=== PATIENT | male | born 1975 | race Caucasian/White ===

== ENCOUNTER 2020-01-15 17:56 | Inpatient (IN) | payer OTHER ==
[~2020-01-15] VITALS: Ht 170.2 cm; Wt 54.9 kg
[~2020-01-15 17:56] MED LIST: DILTIAZEM HCL 125 MG in DEXTROSE 5%-WATER 100 ML IV SCH
[2020-01-15] MEDS ORDERED: DILTIAZEM HCL 5 MG/ML 5 ML VIAL IVP ONE (18:15)
[2020-01-15] MEDS ORDERED: SODIUM CHLORIDE 0.9% 1,000 ML IV ONE (18:15)
[2020-01-15] MEDS ORDERED: SODIUM CHLORIDE 0.9% 1,700 ML IV ONE (18:30)
[2020-01-15] MEDS ORDERED: DILTIAZEM HCL 125 MG in DEXTROSE 5%-WATER 100 ML IV PRN (19:15)
[2020-01-15 19:22] LABS: BASOPHILS % (AUTO) 0.9 % (0.0-2.0); EOSINOPHILS % (AUTO) 0.8 % (1.0-6.0); HEMATOCRIT 35.3 % (41-53); HEMOGLOBIN 11.5 g/dL (13.5-17.5); LYMPHOCYTES # (AUTO) 1.1 K/uL (1.0-4.8); LYMPHOCYTES % (AUTO) 17.5 % (22.0-44.0); MEAN CORPUSCULAR HEMOGLOBIN 27.8 pg (26.0-34.0); MEAN CORPUSCULAR HGB CONC 32.4 G/dL (31.0-37.0); MEAN CORPUSCULAR VOLUME 86 fL (80-100); MONOCYTES # (AUTO) 0.9 K/uL (0.1-1.0); MONOCYTES % (AUTO) 14.1 % (2.0-9.0); NEUTROPHILS # (AUTO) 4.2 K/uL (1.8-7.7); NEUTROPHILS % (AUTO) 66.7 % (40.0-70.0); PLATELET COUNT (AUTO) 134 K/uL (150-450); RED BLOOD CELL COUNT(AUTO) 4.12 MIL/uL (4.50-5.90); RED CELL DISTRIBUTION WIDTH 16.7 % (11.5-14.5)
[2020-01-15 19:34] LABS: D-DIMER 1.97 mg/L FEU (0.00-0.50); INR 1.6 (0.9-1.1); PROTHROMBIN TIME 16.8 SEC (9.4-11.6)
[2020-01-15 19:42] LABS: B-TYPE NATRIURETIC PEPTIDE 1190 pg/mL (0-100)
[2020-01-15 19:43] LABS: CARBON DIOXIDE 23 mmol/L (22-29); CHLORIDE 107 mmol/L (98-107); GLOMERULAR FILTR. RATE CALC > 60 mL/min (>60); GLUCOSE,RANDOM 155 mg/dL (70-110); POTASSIUM 4.8 mmol/L (3.5-5.1); UREA NITROGEN, BLOOD 17 mg/dL (7-18)
[2020-01-15] MEDS ORDERED: AZITHROMYCIN 500 MG/NS 250 ML IV ONE (19:45)
[2020-01-15] MEDS ORDERED: CefTRIAXone 1 GM/DEXTROSE 50 ML IV ONE (19:45)
[2020-01-15 19:47] LABS: ANION GAP 8 mmol/L (8-16); SODIUM SERUM 138 mmol/L (136-145)
[2020-01-15] MEDS ORDERED: IOVERSOL 350 MG/ML 100 ML VIAL ONE (19:52)
[2020-01-15] MEDS ORDERED: SODIUM CHLORIDE 0.9% 100 ML ONE (19:52)
[2020-01-15 19:55] LABS: INFLUENZA TYPE A NEGATIVE FOR TYPE A (NEGATIVE); INFLUENZA TYPE B NEGATIVE FOR TYPE B (NEGATIVE)
[2020-01-15 19:56] LABS: LACTIC ACID 2.1 mmol/L (0.4-2.0)
[2020-01-15 20:09] LABS: ALANINE AMINOTRANSFERASE 28 U/L (12-78); ALKALINE PHOSPHATASE 175 U/L (46-116); ASPARTATE AMINOTRANSFERASE 8 U/L (15-37); BILIRUBIN,TOTAL 1.7 mg/dL (0.1-1.0); FERRITIN 63 ng/mL (26-388)
[2020-01-15 20:10] LABS: ALBUMIN 2.5 g/dL (3.4-5.0); CREATINE KINASE, TOTAL ONLY 120 U/L (39-308); LACTATE DEHYDROGENASE 215 U/L (85-227); TOTAL PROTEIN, SERUM 5.6 g/dL (6.4-8.2)
[2020-01-15] MEDS ORDERED: 0.9% SODIUM CHLORIDE 10 ML SYRINGE IVP PRN (20:15)
[2020-01-15] MEDS ORDERED: ACETAMINOPHEN 325 MG TABLET PO PRN (20:15)
[2020-01-15] MEDS ORDERED: ASPIRIN 81 MG CHEWABLE TABLET PO ONE (20:15)
[2020-01-15 20:30] LABS: C-REACTIVE PROTEIN QUANT 1.42 mg/dL (0.00-0.30)
[2020-01-15] MEDS ORDERED: LORazepam 2 MG/ML VIAL IVP ONE (21:00)
[2020-01-15] MEDS ORDERED: NOREPINEPHRINE 4 MG/D5%-WATER 250 ML IV ONE (22:37)
[2020-01-15] MEDS ORDERED: PHENYLEPHRINE HCL IN 0.9% NACL 400 MCG/10 ML SYRINGE IVP ONE (22:40)
[2020-01-15 23:03] LABS: ABG A-A DIFF O2 576.5 mmHg (10-20.0); ABG BASE EXCESS -26.7 mmol/L (-2.0-3.0); ABG CARBOXYHEMOGLOBIN 0.4 % (0.0-1.5); ABG METHEMOGLOBIN 0.4 % (0.0-1.5); ABG OXYGEN CONTENT 14.4 mL/dL (15.0-23.0); ABG PCO2 54 mmHg (35-45); ABG TOTAL HEMOGLOBIN 12.4 G/dL (12.0-18.0); PO2, ARTERIAL BG 82.8 mmHg (88.0-96.0); SOURCE, BLOOD GAS ARTERIAL; TEMPERATURE, FAHRENHEIT, BG 98.4 FAHREN (96.0-98.6)
[2020-01-15 23:09] LABS: ABG HCO3 5.9 mmol/L (22.0-26.0); ABG PH 6.789 (7.35-7.450)
[2020-01-15 23:10] LABS: ABG OXYGEN SATURATION 82.7 % (95.0-98.0); O2 DEVICE,BLOOD GAS VENTILATOR (ROOM AIR); PEEP,BG 5 cm H2O; SITE, BLOOD GAS LFT RADIAL; SPONTANEOUS VT, BG 445 ml; VT, ABG 450 ml
[2020-01-15] MEDS ORDERED: SODIUM BICARBONATE [ADULT] 8.4% 50 MEQ/50 ML SYRINGE IVP ONE (23:15)
[2020-01-15] MEDS ORDERED: SODIUM BICARBONATE 150 MEQ in DEXTROSE 5%-WATER 1,000 ML IV ONE (23:15)
[2020-01-15] MEDS ORDERED: HYDROCORTISONE SOD SUCC 100 MG/2 ML VIAL IVP ONE (23:30)
[2020-01-15] MEDS ORDERED: FentaNYL CITRATE-PF 100 MCG/2 ML VIAL ONE (23:46)
[2020-01-15] MEDS ORDERED: LIDOCAINE 1% 10 ML VIAL ONE (23:46)
[2020-01-15] MEDS ORDERED: MIDAZOLAM HCL 2 MG/2 ML VIAL ONE (23:46)
[2020-01-16] VITALS (18 sets, daily range): BP systolic 92–144; BP diastolic 46–73
[2020-01-16 00:01] LABS: HEMATOCRIT 35.5 % (41-53); MEAN CORPUSCULAR VOLUME 90 fL (80-100); PLATELET COUNT (AUTO) 113 K/uL (150-450); RED BLOOD CELL COUNT(AUTO) 3.94 MIL/uL (4.50-5.90); RED CELL DISTRIBUTION WIDTH 17.4 % (11.5-14.5)
[2020-01-16 00:26] LABS: ANION GAP 17 mmol/L (8-16); CALCIUM, TOTAL 6.6 mg/dL (8.8-10.5); CARBON DIOXIDE 16 mmol/L (22-29); CHLORIDE 109 mmol/L (98-107); CREATININE 1.21 mg/dL (0.60-1.30); GLOMERULAR FILTR. RATE CALC > 60 mL/min (>60); GLUCOSE,RANDOM 133 mg/dL (70-110); POTASSIUM 4.8 mmol/L (3.5-5.1); SODIUM SERUM 142 mmol/L (136-145); UREA NITROGEN, BLOOD 16 mg/dL (7-18)
[2020-01-16] MEDS ORDERED: MIDAZOLAM HCL 2 MG/2 ML VIAL IVP ONE ×2 (00:30→01:15)
[2020-01-16] MEDS ORDERED: FentaNYL CITRATE-PF 100 MCG/2 ML VIAL IVP ONE ×2 (00:30→01:15)
[2020-01-16 00:31] LABS: ALANINE AMINOTRANSFERASE 29 U/L (12-78); ALBUMIN 2.2 g/dL (3.4-5.0); ALKALINE PHOSPHATASE 202 U/L (46-116); ASPARTATE AMINOTRANSFERASE 37 U/L (15-37); BILIRUBIN,TOTAL 1.4 mg/dL (0.1-1.0); TOTAL PROTEIN, SERUM 5.2 g/dL (6.4-8.2)
[2020-01-16 00:35] LABS: LACTIC ACID 11.7 mmol/L (0.4-2.0)
[2020-01-16 00:36] LABS: B-TYPE NATRIURETIC PEPTIDE 2010 pg/mL (0-100)
[2020-01-16 00:45] LABS: BAND NEUTROPHILS % (MANUAL) 9 % (0-5); LYMPHOCYTES % (MANUAL) 21 % (22-44); MONOCYTES % (MANUAL) 6 % (2-9); SEGMENTED NEUTROPHILS % 64 % (40-70)
[2020-01-16] MEDS ORDERED: SODIUM CHLORIDE 0.9% 1,000 ML IV ONE ×2 (00:45)
[2020-01-16 01:16] LABS: SOURCE, BLOOD GAS ARTERIAL
[2020-01-16] MEDS: PROPOFOL 1000 MG/ISO-OSM 100 ML IV PRN ×3 (01:32→19:52)
[2020-01-16] MEDS: VASOPRESSIN 40 UNITS in DEXTROSE 5%-WATER 98 ML IV PRN (01:34)
[2020-01-16 01:39] LABS: ABG A-A DIFF O2 640.3 mmHg (10-20.0); ABG BASE EXCESS -17.9 mmol/L (-2.0-3.0); ABG CARBOXYHEMOGLOBIN 0.5 % (0.0-1.5); ABG METHEMOGLOBIN 0.2 % (0.0-1.5); ABG OXYGEN CONTENT 11.6 mL/dL (15.0-23.0); ABG OXYHEMOGLOBIN 70.1 % (94.0-100.0); ABG PCO2 39 mmHg (35-45); ABG TOTAL HEMOGLOBIN 11.7 G/dL (12.0-18.0); TEMPERATURE, FAHRENHEIT, BG 92.7 FAHREN (96.0-98.6)
[2020-01-16] MEDS ORDERED: CALCIUM GLUCONATE 2,000 MG in DEXTROSE 5%-WATER 50 ML IV ONE (02:30)
[2020-01-16] MEDS ORDERED: HEPARIN SODIUM,PORCINE 5,000 UNITS/ML VIAL IVP PRN ×4 (03:00)
[2020-01-16] MEDS ORDERED: HEPARIN SODIUM 25000 UNITS/D5W 250 ML IV PRN ×2 (03:00)
[2020-01-16] MEDS ORDERED: HEPARIN SODIUM,PORCINE 5,000 UNITS/ML VIAL IVP ONE ×3 (03:00)
[2020-01-16] MEDS ORDERED: DILTIAZEM HCL 125 MG in DEXTROSE 5%-WATER 100 ML IV SCH (03:00)
[2020-01-16 03:16] LABS: ABG PH 7.099 (7.35-7.450)
[2020-01-16 03:17] LABS: ABG OXYGEN SATURATION 70.6 % (95.0-98.0); O2 DEVICE,BLOOD GAS VENTILATOR (ROOM AIR); PO2, ARTERIAL BG 41.6 mmHg (88.0-96.0); SITE, BLOOD GAS LFT RADIAL; VT, ABG 450 ml
[2020-01-16 03:18] LABS: PEEP,BG 10 cm H2O; SPONTANEOUS VT, BG 445 ml
[2020-01-16 03:28] LABS: BASOPHILS % (AUTO) 0.1 % (0.0-2.0); EOSINOPHILS % (AUTO) 0.1 % (1.0-6.0); HEMOGLOBIN 10.2 g/dL (13.5-17.5); LYMPHOCYTES # (AUTO) 0.6 K/uL (1.0-4.8); LYMPHOCYTES % (AUTO) 3.3 % (22.0-44.0); MEAN CORPUSCULAR HEMOGLOBIN 27.3 pg (26.0-34.0); MEAN CORPUSCULAR VOLUME 88 fL (80-100); MONOCYTES # (AUTO) 1.6 K/uL (0.1-1.0); MONOCYTES % (AUTO) 9.3 % (2.0-9.0); NEUTROPHILS # (AUTO) 15.4 K/uL (1.8-7.7); PLATELET COUNT (AUTO) 108 K/uL (150-450); RED BLOOD CELL COUNT(AUTO) 3.74 MIL/uL (4.50-5.90); RED CELL DISTRIBUTION WIDTH 17.3 % (11.5-14.5)
[2020-01-16 03:32] LABS: NEUTROPHILS % (AUTO) 87.2 % (40.0-70.0)
[2020-01-16 03:40] LABS: INR 2.3 (0.9-1.1); PROTHROMBIN TIME 23.4 SEC (9.4-11.6)
[2020-01-16 04:43] LABS: ABG A-A DIFF O2 639.1 mmHg (10-20.0); ABG BASE EXCESS -14.6 mmol/L (-2.0-3.0); ABG CARBOXYHEMOGLOBIN 0.2 % (0.0-1.5); ABG HCO3 13.4 mmol/L (22.0-26.0); ABG METHEMOGLOBIN 0.3 % (0.0-1.5); ABG OXYGEN CONTENT 12.9 mL/dL (15.0-23.0); ABG OXYHEMOGLOBIN 79.5 % (94.0-100.0); ABG PCO2 37 mmHg (35-45); ABG TOTAL HEMOGLOBIN 11.5 G/dL (12.0-18.0); PO2, ARTERIAL BG 45.1 mmHg (88.0-96.0); SOURCE, BLOOD GAS ARTERIAL; TEMPERATURE, FAHRENHEIT, BG 92.7 FAHREN (96.0-98.6)
[2020-01-16 04:44] LABS: ABG OXYGEN SATURATION 79.9 % (95.0-98.0); O2 DEVICE,BLOOD GAS VENTILATOR (ROOM AIR); PEEP,BG 8 cm H2O; SITE, BLOOD GAS LFT RADIAL; VT, ABG 450 ml
[2020-01-16 04:45] LABS: SPONTANEOUS VT, BG 504 ml
[2020-01-16] MEDS: NOREPINEPHRINE 4 MG/D5%-WATER 250 ML IV PRN ×3 (04:45→19:53)
[2020-01-16] MEDS: PHENYLEPHRINE 200 MG/D5%-WATER 250 ML IV PRN (04:46)
[2020-01-16 05:26] LABS: EOSINOPHILS % (AUTO) 0 % (1.0-6.0); HEMATOCRIT 32.5 % (41-53); HEMOGLOBIN 10.2 g/dL (13.5-17.5); LYMPHOCYTES # (AUTO) 0.3 K/uL (1.0-4.8); LYMPHOCYTES % (AUTO) 1.5 % (22.0-44.0); MEAN CORPUSCULAR HEMOGLOBIN 27.8 pg (26.0-34.0); MEAN CORPUSCULAR HGB CONC 31.5 G/dL (31.0-37.0); MEAN CORPUSCULAR VOLUME 88 fL (80-100); MONOCYTES # (AUTO) 2.4 K/uL (0.1-1.0); MONOCYTES % (AUTO) 10.8 % (2.0-9.0); NEUTROPHILS # (AUTO) 19.3 K/uL (1.8-7.7); PLATELET COUNT (AUTO) 105 K/uL (150-450); RED BLOOD CELL COUNT(AUTO) 3.67 MIL/uL (4.50-5.90); RED CELL DISTRIBUTION WIDTH 17.2 % (11.5-14.5)
[2020-01-16 05:27] LABS: NEUTROPHILS % (AUTO) 86.7 % (40.0-70.0)
[2020-01-16 05:29] LABS: CALCIUM, TOTAL 6.7 mg/dL (8.8-10.5); CREATININE 1.4 mg/dL (0.60-1.30); POTASSIUM 4.3 mmol/L (3.5-5.1)
[2020-01-16 05:34] LABS: BILIRUBIN,TOTAL 1.9 mg/dL (0.1-1.0); TOTAL PROTEIN, SERUM 4.6 g/dL (6.4-8.2)
[2020-01-16] MEDS: DILTIAZEM HCL 125 MG in DEXTROSE 5%-WATER 100 ML IV PRN (05:45)
[2020-01-16 08:43] LABS: GLUCOSE,POINT OF CARE 180 MG/DL (70-110)
[2020-01-16] MEDS ORDERED: SODIUM BICARBONATE 150 MEQ in DEXTROSE 5%-WATER 1,000 ML IV SCH (09:00)
[2020-01-16 10:48] LABS: ABG A-A DIFF O2 525.5 mmHg (10-20.0); ABG BASE EXCESS -3.2 mmol/L (-2.0-3.0); ABG CARBOXYHEMOGLOBIN 0.3 % (0.0-1.5); ABG METHEMOGLOBIN 0.2 % (0.0-1.5); ABG OXYGEN CONTENT 16.1 mL/dL (15.0-23.0); ABG OXYGEN SATURATION 99.2 % (95.0-98.0); ABG OXYHEMOGLOBIN 98.7 % (94.0-100.0); ABG PCO2 33 mmHg (35-45); ABG PH 7.421 (7.35-7.450); ABG TOTAL HEMOGLOBIN 11.3 G/dL (12.0-18.0); PO2, ARTERIAL BG 163.7 mmHg (88.0-96.0); SOURCE, BLOOD GAS ARTERIAL; TEMPERATURE, FAHRENHEIT, BG 91.2 FAHREN (96.0-98.6)
[2020-01-16 10:49] LABS: SITE, BLOOD GAS ARTERIAL LINE
[2020-01-16 10:50] LABS: O2 DEVICE,BLOOD GAS VENTILATOR (ROOM AIR); PEEP,BG 8 cm H2O; VT, ABG 450 ml
[2020-01-16 13:21] LABS: CALCIUM, TOTAL 6.1 mg/dL (8.8-10.5); CREATININE 1.42 mg/dL (0.60-1.30); MAGNESIUM 1.4 mg/dL (1.80-2.40); PHOSPHORUS 3.8 mg/dL (2.5-4.9); POTASSIUM 3.5 mmol/L (3.5-5.1)
[2020-01-16] MEDS ORDERED: MAGNESIUM SULFATE 3 GM in DEXTROSE 5%-WATER 100 ML IV ONE (14:00)
[2020-01-16 15:15] LABS: APPEARANCE,URINE CLOUDY (CLEAR); BILIRUBIN,URINE NEGATIVE (NEGATIVE); GLUCOSE, URINE (UA) 100 mg/dL (NEGATIVE); KETONES,URINE NEGATIVE (NEGATIVE); LEUKOCYTE ESTERASE ,URINE TRACE (NEGATIVE); NITRATE,URINE NEGATIVE (NEGATIVE); OCCULT BLOOD,URINE LARGE (NEGATIVE); PROTEIN,URINE SEE CONFIRM (NEGATIVE)
[2020-01-16 15:21] LABS: CREATININE,URINE RANDOM 14.3 mg/dL (30.0-125.0); PROTEIN,URINE RANDOM 193 mg/dL (0-11.9); SODIUM,URINE RANDOM 93 mmol/l (20-110); UREA NITROGEN,URINE RANDOM 115 mg/dL (350-1000)
[2020-01-16 15:46] LABS: SULFOSALICYLIC ACID,URINE 4+ (Negative)
[2020-01-16 15:47] LABS: RBC,URINE >100 /HPF (0-2)
[2020-01-16 15:48] LABS: BACTERIA,URINE Moderate /HPF (None Seen)
[2020-01-16 15:49] LABS: SQUAMOUS EPITHELIAL CELL,UR Few /LPF (None Seen)
[2020-01-16 19:00] LABS: CALCIUM, TOTAL 6.2 mg/dL (8.8-10.5); CREATININE 1.61 mg/dL (0.60-1.30); POTASSIUM 3.2 mmol/L (3.5-5.1)
[2020-01-16 19:03] LABS: MAGNESIUM 2.5 mg/dL (1.80-2.40); PHOSPHORUS 3.8 mg/dL (2.5-4.9)
[2020-01-16] MEDS ORDERED: *CLINICAL-CEFEPIME DOSING CLINICAL ONE (20:15)
[2020-01-16] MEDS: SODIUM CHLORIDE 0.9% 1,000 ML IV SCH (21:14)
[2020-01-16] MEDS: CEFEPIME HCL 2 GM in DEXTROSE 5%-WATER 50 ML IV SCH (21:14)
[2020-01-16] MEDS: POTASSIUM CHL 10 MEQ/WATER 50 ML IV SCH ×2 (21:15→22:30)
[2020-01-16] MEDS: MetroNIDAZOLE 500 MG/NACL 100 ML IV SCH (21:54)
[2020-01-16 22:41] LABS: AMPHET/METH SCREEN,URINE NEGATIVE (NEGATIVE); BARBITURATE SCREEN, URINE NEGATIVE (NEGATIVE); BENZODIAZEPINES SCREEN,URINE POSITIVE (NEGATIVE); CANNABINOID SCREEN,URINE NEGATIVE (NEGATIVE); COCAINE SCREEN,URINE NEGATIVE (NEGATIVE); METHADONE SCREEN, URINE NEGATIVE (NEGATIVE); OPIATE SCREEN,URINE NEGATIVE (NEGATIVE)
[2020-01-16 22:46] LABS: PHENCYCLIDINE SCREEN,URINE NEGATIVE (NEGATIVE)
[2020-01-17] VITALS (24 sets, daily range): BP systolic 99–139; BP diastolic 25–65
[2020-01-17] MEDS: DILTIAZEM HCL 125 MG in DEXTROSE 5%-WATER 100 ML IV PRN (03:24)
[2020-01-17] MEDS: MetroNIDAZOLE 500 MG/NACL 100 ML IV SCH ×3 (05:52→23:14)
[2020-01-17] MEDS: NOREPINEPHRINE 4 MG/D5%-WATER 250 ML IV PRN ×2 (05:52→21:23)
[2020-01-17] MEDS: PROPOFOL 1000 MG/ISO-OSM 100 ML IV PRN ×3 (06:59→22:53)
[2020-01-17 08:07] LABS: BASOPHILS % (AUTO) 0.2 % (0.0-2.0); EOSINOPHILS % (AUTO) 0.9 % (1.0-6.0); HEMATOCRIT 30.6 % (41-53); HEMOGLOBIN 10.2 g/dL (13.5-17.5); LYMPHOCYTES # (AUTO) 1.5 K/uL (1.0-4.8); LYMPHOCYTES % (AUTO) 12.6 % (22.0-44.0); MEAN CORPUSCULAR HEMOGLOBIN 27.9 pg (26.0-34.0); MEAN CORPUSCULAR HGB CONC 33.4 G/dL (31.0-37.0); MEAN CORPUSCULAR VOLUME 84 fL (80-100); MONOCYTES # (AUTO) 0.6 K/uL (0.1-1.0); MONOCYTES % (AUTO) 4.7 % (2.0-9.0); NEUTROPHILS # (AUTO) 9.9 K/uL (1.8-7.7); NEUTROPHILS % (AUTO) 81.6 % (40.0-70.0); PLATELET COUNT (AUTO) 42 K/uL (150-450); RED BLOOD CELL COUNT(AUTO) 3.66 MIL/uL (4.50-5.90); RED CELL DISTRIBUTION WIDTH 16.8 % (11.5-14.5)
[2020-01-17 09:02] LABS: ABG A-A DIFF O2 270.3 mmHg (10-20.0); ABG BASE EXCESS -0.3 mmol/L (-2.0-3.0); ABG CARBOXYHEMOGLOBIN 0.2 % (0.0-1.5); ABG HCO3 24.2 mmol/L (22.0-26.0); ABG METHEMOGLOBIN 0.2 % (0.0-1.5); ABG OXYGEN CONTENT 14.2 mL/dL (15.0-23.0); ABG OXYHEMOGLOBIN 91.6 % (94.0-100.0); ABG PCO2 34 mmHg (35-45); ABG PH 7.462 (7.35-7.450); PO2, ARTERIAL BG 52.5 mmHg (88.0-96.0); SOURCE, BLOOD GAS ARTERIAL; TEMPERATURE, FAHRENHEIT, BG 92.4 FAHREN (96.0-98.6)
[2020-01-17 09:04] LABS: O2 DEVICE,BLOOD GAS VENTILATOR (ROOM AIR); PEEP,BG 5 cm H2O; SITE, BLOOD GAS ARTERIAL LINE; VT, ABG 450 ml
[2020-01-17] MEDS ORDERED: ARGATROBAN 250 MG in DEXTROSE 5%-WATER 247.5 ML IV PRN (10:00)
[2020-01-17] MEDS ORDERED: BUMETANIDE 0.25 MG/ML 4 ML VIAL IVP ONE (10:15)
[2020-01-17] MEDS: SODIUM CHLORIDE 0.9% 1,000 ML IV SCH (11:03)
[2020-01-17 11:10] LABS: BASOPHILS % (AUTO) 0.3 % (0.0-2.0); EOSINOPHILS % (AUTO) 0.5 % (1.0-6.0); HEMOGLOBIN 9.8 g/dL (13.5-17.5); LYMPHOCYTES # (AUTO) 1.4 K/uL (1.0-4.8); LYMPHOCYTES % (AUTO) 12.2 % (22.0-44.0); MEAN CORPUSCULAR HEMOGLOBIN 27.5 pg (26.0-34.0); MEAN CORPUSCULAR HGB CONC 32.7 G/dL (31.0-37.0); MEAN CORPUSCULAR VOLUME 84 fL (80-100); MONOCYTES # (AUTO) 0.7 K/uL (0.1-1.0); MONOCYTES % (AUTO) 6.2 % (2.0-9.0); NEUTROPHILS # (AUTO) 8.9 K/uL (1.8-7.7); NEUTROPHILS % (AUTO) 80.8 % (40.0-70.0); PLATELET COUNT (AUTO) 38 K/uL (150-450); RED BLOOD CELL COUNT(AUTO) 3.57 MIL/uL (4.50-5.90); RED CELL DISTRIBUTION WIDTH 16.7 % (11.5-14.5)
[2020-01-17 11:48] LABS: CALCIUM, TOTAL 6.4 mg/dL (8.8-10.5); CREATININE 1.96 mg/dL (0.60-1.30); POTASSIUM 3.5 mmol/L (3.5-5.1)
[2020-01-17 11:50] LABS: MAGNESIUM 2.1 mg/dL (1.80-2.40); PHOSPHORUS 3.7 mg/dL (2.5-4.9)
[2020-01-17 14:10] LABS: C-REACTIVE PROTEIN QUANT 6.2 mg/dL (0.00-0.30)
[2020-01-17 14:11] LABS: D-DIMER 6.08 mg/L FEU (0.00-0.50); INR 2.5 (0.9-1.1); PROTHROMBIN TIME 25.5 SEC (9.4-11.6)
[2020-01-17] MEDS ORDERED: AMIODARONE HCL 150 MG in DEXTROSE 5%-WATER 97 ML IV ONE (15:15)
[2020-01-17] MEDS ORDERED: AMIODARONE HCL 360 MG in DEXTROSE 5%-WATER 242.8 ML IV ONE (15:30)
[2020-01-17] MEDS: DOXYCYCLINE HYCLATE 100 MG in DEXTROSE 5%-WATER 100 ML IV SCH (16:20)
[2020-01-17] MEDS: CEFEPIME HCL 2 GM in DEXTROSE 5%-WATER 50 ML IV SCH (21:14)
[2020-01-17] MEDS ORDERED: AMIODARONE HCL 540 MG in DEXTROSE 5%-WATER 239.2 ML IV ONE (21:30)
[2020-01-18] VITALS (23 sets, daily range): BP systolic 110–137; BP diastolic 25–40
[2020-01-18] MEDS: SODIUM CHLORIDE 0.9% 1,000 ML IV SCH (01:21)
[2020-01-18] MEDS: NOREPINEPHRINE 4 MG/D5%-WATER 250 ML IV PRN ×5 (02:11→22:55)
[2020-01-18 02:51] LABS: HEMATOCRIT 31.1 % (41-53); HEMOGLOBIN 10.3 g/dL (13.5-17.5)
[2020-01-18] MEDS ORDERED: ZOLPIDEM TARTRATE 5 MG TABLET PO PRN (03:15)
[2020-01-18] MEDS ORDERED: ONDANSETRON HCL 4 MG/2 ML VIAL IVP PRN (03:15)
[2020-01-18] MEDS ORDERED: ACETAMINOPHEN 325 MG TABLET PO PRN (03:15)
[2020-01-18] MEDS: DOXYCYCLINE HYCLATE 100 MG in DEXTROSE 5%-WATER 100 ML IV SCH ×2 (05:00→17:11)
[2020-01-18 05:34] LABS: BASOPHILS % (AUTO) 0.3 % (0.0-2.0); EOSINOPHILS % (AUTO) 1.4 % (1.0-6.0); HEMATOCRIT 31.4 % (41-53); HEMOGLOBIN 10.8 g/dL (13.5-17.5); LYMPHOCYTES # (AUTO) 2.1 K/uL (1.0-4.8); LYMPHOCYTES % (AUTO) 15.5 % (22.0-44.0); MEAN CORPUSCULAR HEMOGLOBIN 28.8 pg (26.0-34.0); MEAN CORPUSCULAR HGB CONC 34.3 G/dL (31.0-37.0); MEAN CORPUSCULAR VOLUME 84 fL (80-100); MONOCYTES # (AUTO) 1.6 K/uL (0.1-1.0); NEUTROPHILS # (AUTO) 9.5 K/uL (1.8-7.7); NEUTROPHILS % (AUTO) 70.8 % (40.0-70.0); PLATELET COUNT (AUTO) 49 K/uL (150-450); RED BLOOD CELL COUNT(AUTO) 3.74 MIL/uL (4.50-5.90); RED CELL DISTRIBUTION WIDTH 16.5 % (11.5-14.5)
[2020-01-18 05:39] LABS: ACETAMINOPHEN 4 mcg/mL (10-30); CALCIUM, TOTAL 6.6 mg/dL (8.8-10.5); CREATININE 2.87 mg/dL (0.60-1.30); MAGNESIUM 2.1 mg/dL (1.80-2.40); PHOSPHORUS 5.9 mg/dL (2.5-4.9)
[2020-01-18] MEDS: PROPOFOL 1000 MG/ISO-OSM 100 ML IV PRN ×3 (05:41→18:13)
[2020-01-18 05:50] LABS: SALICYLATE < 2.8 mg/dL (2.8-20.0)
[2020-01-18] MEDS: MetroNIDAZOLE 500 MG/NACL 100 ML IV SCH ×3 (06:22→21:20)
[2020-01-18] MEDS ORDERED: FUROSEMIDE 40 MG/4 ML VIAL IVP ONE (07:00)
[2020-01-18] MEDS ORDERED: FAMOTIDINE 20 MG TABLET PO SCH (09:00)
[2020-01-18 10:08] LABS: ABG A-A DIFF O2 258.7 mmHg (10-20.0); ABG BASE EXCESS -11.3 mmol/L (-2.0-3.0); ABG CARBOXYHEMOGLOBIN 0.6 % (0.0-1.5); ABG HCO3 16.3 mmol/L (22.0-26.0); ABG METHEMOGLOBIN 0.1 % (0.0-1.5); ABG OXYGEN SATURATION 93.8 % (95.0-98.0); ABG OXYHEMOGLOBIN 93.1 % (94.0-100.0); ABG PCO2 28 mmHg (35-45); ABG PH 7.332 (7.35-7.450); ABG TOTAL HEMOGLOBIN 11.4 G/dL (12.0-18.0); PO2, ARTERIAL BG 68.2 mmHg (88.0-96.0); SOURCE, BLOOD GAS ARTERIAL; TEMPERATURE, FAHRENHEIT, BG 95.4 FAHREN (96.0-98.6)
[2020-01-18 10:10] LABS: O2 DEVICE,BLOOD GAS VENTILATOR (ROOM AIR); SITE, BLOOD GAS ARTERIAL LINE
[2020-01-18 10:11] LABS: PEEP,BG 5 cm H2O; VT, ABG 450 ml
[2020-01-18 10:48] LABS: ALBUMIN 1.6 g/dL (3.4-5.0); BILIRUBIN,DIRECT 3.1 mg/dL (0.00-0.20); BILIRUBIN,TOTAL 3.7 mg/dL (0.1-1.0); TOTAL PROTEIN, SERUM 4.1 g/dL (6.4-8.2)
[2020-01-18] MEDS ORDERED: AMIODARONE HCL 750 MG in DEXTROSE 5%-WATER 485 ML IV SCH (15:30)
[2020-01-18] MEDS ORDERED: HEPARIN SODIUM,PORCINE 1,000 UNITS/ML VIAL IVP ONE (17:14)
[2020-01-18 17:37] LABS: HEMATOCRIT 28.4 % (41-53); HEMOGLOBIN 9.1 g/dL (13.5-17.5)
[2020-01-18] MEDS: CEFEPIME HCL 2 GM in DEXTROSE 5%-WATER 50 ML IV SCH (20:22)
[2020-01-18] MEDS: FAMOTIDINE 10 MG/ML 2 ML VIAL IVP SCH (20:28)
[2020-01-19] VITALS (13 sets, daily range): BP systolic 105–152; BP diastolic 29–64
[2020-01-19 01:25] LABS: HEMATOCRIT 35.4 % (41-53); HEMOGLOBIN 11.5 g/dL (13.5-17.5)
[2020-01-19] MEDS: PROPOFOL 1000 MG/ISO-OSM 100 ML IV PRN (01:59)
[2020-01-19] MEDS: PHENYLEPHRINE 200 MG/D5%-WATER 250 ML IV PRN (03:40)
[2020-01-19] MEDS: NOREPINEPHRINE 4 MG/D5%-WATER 250 ML IV PRN ×6 (03:52→21:07)
[2020-01-19 04:43] LABS: OCCULT BLOOD,GASTRIC FLUID POSITIVE (NEGATIVE)
[2020-01-19] MEDS: DOXYCYCLINE HYCLATE 100 MG in DEXTROSE 5%-WATER 100 ML IV SCH ×2 (04:53→16:31)
[2020-01-19 04:56] LABS: BASOPHILS % (AUTO) 0.3 % (0.0-2.0); EOSINOPHILS % (AUTO) 1.8 % (1.0-6.0); HEMATOCRIT 31.5 % (41-53); HEMOGLOBIN 10.6 g/dL (13.5-17.5); LYMPHOCYTES # (AUTO) 0.8 K/uL (1.0-4.8); LYMPHOCYTES % (AUTO) 5.2 % (22.0-44.0); MEAN CORPUSCULAR HEMOGLOBIN 28.4 pg (26.0-34.0); MEAN CORPUSCULAR HGB CONC 33.8 G/dL (31.0-37.0); MEAN CORPUSCULAR VOLUME 84 fL (80-100); MONOCYTES # (AUTO) 1.6 K/uL (0.1-1.0); MONOCYTES % (AUTO) 10.1 % (2.0-9.0); NEUTROPHILS # (AUTO) 13.5 K/uL (1.8-7.7); NEUTROPHILS % (AUTO) 82.6 % (40.0-70.0); PLATELET COUNT (AUTO) 32 K/uL (150-450); RED BLOOD CELL COUNT(AUTO) 3.74 MIL/uL (4.50-5.90); RED CELL DISTRIBUTION WIDTH 16.9 % (11.5-14.5)
[2020-01-19 05:09] LABS: ALBUMIN 1.4 g/dL (3.4-5.0); BILIRUBIN,TOTAL 5.9 mg/dL (0.1-1.0); CALCIUM, TOTAL 6.8 mg/dL (8.8-10.5); CREATININE 2.91 mg/dL (0.60-1.30); POTASSIUM 5.5 mmol/L (3.5-5.1); TOTAL PROTEIN, SERUM 3.5 g/dL (6.4-8.2)
[2020-01-19] MEDS ORDERED: DEXTROSE 50%-WATER 25 GM/50 ML SYRINGE IVP ONE ×6 (05:45→16:30)
[2020-01-19] MEDS: MetroNIDAZOLE 500 MG/NACL 100 ML IV SCH ×3 (06:00→22:21)
[2020-01-19] MEDS ORDERED: DEXTROSE 10%-WATER 1,000 ML IV SCH (07:00)
[2020-01-19 07:54] LABS: GLUCOSE,POINT OF CARE 19 MG/DL (70-110)
[2020-01-19 07:54] LABS: GLUCOSE,POINT OF CARE 108 MG/DL (70-110)
[2020-01-19 07:55] LABS: GLUCOSE,POINT OF CARE 45 MG/DL (70-110)
[2020-01-19] MEDS: FAMOTIDINE 10 MG/ML 2 ML VIAL IVP SCH ×2 (09:00→22:21)
[2020-01-19] MEDS ORDERED: FAMOTIDINE 10 MG/ML 2 ML VIAL IVP SCH (09:00)
[2020-01-19] MEDS ORDERED: SODIUM CHLORIDE 0.9% 500 ML IV ONE (09:07)
[2020-01-19 09:13] LABS: GLUCOSE,POINT OF CARE 93 MG/DL (70-110)
[2020-01-19 09:48] LABS: HEMATOCRIT 31.8 % (41-53); HEMOGLOBIN 10.3 g/dL (13.5-17.5)
[2020-01-19] MEDS ORDERED: HEPARIN SODIUM,PORCINE 1,000 UNITS/ML VIAL IVP ONE (12:00)
[2020-01-19] MEDS ORDERED: [UNRECOGNIZED DRUG - REMARK] IV SCH ×10 (13:15→14:00)
[2020-01-19] MEDS ORDERED: SODIUM CHLORIDE 0.9% 250 ML IV ONE (14:56)
[2020-01-19] MEDS ORDERED: SODIUM BICARBONATE [ADULT] 8.4% 50 MEQ/50 ML SYRINGE IVP ONE (17:13)
[2020-01-19] MEDS ORDERED: EPINEPHrine 1:10,000 [1 MG/10 ML] SYRINGE IVP ONE (17:13)
[2020-01-19] MEDS ORDERED: GLUCAGON,HUMAN RECOMBINANT 1 MG VIAL IVP PRN (17:15)
[2020-01-19] MEDS ORDERED: GLUCAGON,HUMAN RECOMBINANT 1 MG VIAL IVP SCH (19:15)
[2020-01-19] MEDS ORDERED: GLUCAGON,HUMAN RECOMBINANT 1 MG VIAL SQ ONE (19:15)
[2020-01-19] MEDS: GLUCAGON,HUMAN RECOMBINANT 1 MG VIAL IVP PRN ×2 (19:30→21:16)
[2020-01-19] MEDS ORDERED: DEXTROSE 50%-WATER 25 GM/50 ML SYRINGE IVP PRN ×2 (20:00→22:00)
[2020-01-19] MEDS: [UNRECOGNIZED DRUG - REMARK] IV SCH ×6 (20:15)
[2020-01-19] MEDS: CEFEPIME HCL 2 GM in DEXTROSE 5%-WATER 50 ML IV SCH (21:38)
[2020-01-20] VITALS: BP 152/36
[2020-01-20] MEDS: NOREPINEPHRINE 4 MG/D5%-WATER 250 ML IV PRN ×5 (00:15→23:34)
[2020-01-20] MEDS: VASOPRESSIN 40 UNITS in DEXTROSE 5%-WATER 98 ML IV PRN (00:16)
[2020-01-20] MEDS: GLUCAGON,HUMAN RECOMBINANT 1 MG VIAL IVP PRN ×11 (00:16→20:00)
[2020-01-20 04:00] VITALS: BP 152/33
[2020-01-20] MEDS: DOXYCYCLINE HYCLATE 100 MG in DEXTROSE 5%-WATER 100 ML IV SCH ×2 (04:12→16:05)
[2020-01-20 05:28] LABS: BASOPHILS % (AUTO) 0.2 % (0.0-2.0); EOSINOPHILS % (AUTO) 2.2 % (1.0-6.0); HEMATOCRIT 29.7 % (41-53); HEMOGLOBIN 9.6 g/dL (13.5-17.5); LYMPHOCYTES # (AUTO) 0.9 K/uL (1.0-4.8); LYMPHOCYTES % (AUTO) 5.3 % (22.0-44.0); MEAN CORPUSCULAR HEMOGLOBIN 27.2 pg (26.0-34.0); MEAN CORPUSCULAR HGB CONC 32.2 G/dL (31.0-37.0); MEAN CORPUSCULAR VOLUME 85 fL (80-100); MONOCYTES # (AUTO) 3.1 K/uL (0.1-1.0); MONOCYTES % (AUTO) 17.3 % (2.0-9.0); NEUTROPHILS # (AUTO) 13.4 K/uL (1.8-7.7); RED BLOOD CELL COUNT(AUTO) 3.51 MIL/uL (4.50-5.90); RED CELL DISTRIBUTION WIDTH 16.4 % (11.5-14.5)
[2020-01-20 05:42] LABS: HEMOGLOBIN A1C 5.2 % (3.8-5.6)
[2020-01-20 05:58] LABS: ALANINE AMINOTRANSFERASE 1051 U/L (12-78); ALKALINE PHOSPHATASE 204 U/L (46-116); ANION GAP 4 mmol/L (8-16); BILIRUBIN,TOTAL 6.3 mg/dL (0.1-1.0); CALCIUM, TOTAL 7.8 mg/dL (8.8-10.5); CARBON DIOXIDE 23 mmol/L (22-29); CHLORIDE 101 mmol/L (98-107); CREATININE 2.05 mg/dL (0.60-1.30); FREE T4 (FREE THYROXINE) 2.33 ng/dL (0.76-1.46); GLOMERULAR FILTR. RATE CALC 36 mL/min (>60); GLUCOSE,RANDOM 149 mg/dL (70-110); HDL CHOLESTEROL 12 mg/dL (40-60); PHOSPHORUS 3.3 mg/dL (2.5-4.9); POTASSIUM 3.8 mmol/L (3.5-5.1); SODIUM SERUM 128 mmol/L (136-145); TOTAL PROTEIN, SERUM 2.8 g/dL (6.4-8.2); TRIGLYCERIDES 100 mg/dL (15-150); UREA NITROGEN, BLOOD 11 mg/dL (7-18)
[2020-01-20] MEDS: MetroNIDAZOLE 500 MG/NACL 100 ML IV SCH ×3 (06:04→22:27)
[2020-01-20 06:26] LABS: ASPARTATE AMINOTRANSFERASE 2487 U/L (15-37); CHOL/HDL RATIO 4.2 (4.2-7.3); LDL CHOL (CALC.) 18 mg/dL (0-130); THYROID STIMULATING HORMONE < 0.01 uIU/mL (0.36-3.74)
[2020-01-20 06:45] LABS: CHOLESTEROL < 50 mg/dL (131-200)
[2020-01-20 07:33] LABS: PLATELET COUNT (AUTO) 15 K/uL (150-450)
[2020-01-20 08:00] VITALS: BP 145/33
[2020-01-20] MEDS: FAMOTIDINE 10 MG/ML 2 ML VIAL IVP SCH ×2 (09:03→20:00)
[2020-01-20] MEDS: ALBUMIN HUMAN 25%-25GM/100ML 100 ML IV SCH ×2 (11:50→17:02)
[2020-01-20 12:00] VITALS: BP 111/28
[2020-01-20 12:15] LABS: C.DIFF GDH ANTIGEN, Stool Negative (Negative); C.DIFF TOXINS A&B, Stool Negative (Negative)
[2020-01-20] MEDS ORDERED: SODIUM CHLORIDE 0.9% 250 ML IV ONE (13:17)
[2020-01-20 16:00] VITALS: BP 124/30
[2020-01-20] MEDS: HYDROCORTISONE SOD SUCC 100 MG/2 ML VIAL IVP SCH ×2 (16:04→23:57)
[2020-01-20] MEDS: [UNRECOGNIZED DRUG - REMARK] IV SCH ×6 (19:31)
[2020-01-20 20:00] VITALS: BP 129/31
[2020-01-20] MEDS: CEFEPIME HCL 2 GM in DEXTROSE 5%-WATER 50 ML IV SCH (20:00)
[2020-01-21] VITALS: BP 126/38
[2020-01-21] MEDS: ALBUMIN HUMAN 25%-25GM/100ML 100 ML IV SCH ×3 (03:00→18:09)
[2020-01-21 04:00] VITALS: BP 137/38
[2020-01-21] MEDS: DOXYCYCLINE HYCLATE 100 MG in DEXTROSE 5%-WATER 100 ML IV SCH ×2 (04:13→16:14)
[2020-01-21 05:32] LABS: BASOPHILS % (AUTO) 0.2 % (0.0-2.0); EOSINOPHILS % (AUTO) 1.1 % (1.0-6.0); HEMATOCRIT 28.2 % (41-53); HEMOGLOBIN 9.2 g/dL (13.5-17.5); MEAN CORPUSCULAR HGB CONC 32.8 G/dL (31.0-37.0); MEAN CORPUSCULAR VOLUME 86 fL (80-100); MONOCYTES # (AUTO) 1.9 K/uL (0.1-1.0); MONOCYTES % (AUTO) 13.6 % (2.0-9.0); NEUTROPHILS # (AUTO) 10.9 K/uL (1.8-7.7); NEUTROPHILS % (AUTO) 78.1 % (40.0-70.0)
[2020-01-21 05:40] LABS: ALBUMIN 2.1 g/dL (3.4-5.0); BILIRUBIN,TOTAL 9.5 mg/dL (0.1-1.0); CALCIUM, TOTAL 7.9 mg/dL (8.8-10.5); CREATININE 2.92 mg/dL (0.60-1.30); MAGNESIUM 2.3 mg/dL (1.80-2.40); PHOSPHORUS 3.8 mg/dL (2.5-4.9); POTASSIUM 5.1 mmol/L (3.5-5.1); TOTAL PROTEIN, SERUM 3.6 g/dL (6.4-8.2)
[2020-01-21 06:03] LABS: PLATELET COUNT (AUTO) 17 K/uL (150-450)
[2020-01-21] MEDS: MetroNIDAZOLE 500 MG/NACL 100 ML IV SCH ×3 (06:07→22:05)
[2020-01-21] MEDS: NOREPINEPHRINE 4 MG/D5%-WATER 250 ML IV PRN (06:10)
[2020-01-21 08:00] VITALS: BP 144/38
[2020-01-21] MEDS: FAMOTIDINE 10 MG/ML 2 ML VIAL IVP SCH ×2 (08:13→20:48)
[2020-01-21] MEDS: HYDROCORTISONE SOD SUCC 100 MG/2 ML VIAL IVP SCH ×2 (08:13→16:14)
[2020-01-21 12:00] VITALS: BP 118/35
[2020-01-21 12:34] LABS: ORGANISM ID Not indicated.; S PNEUMO SOURCE Urine; STREP PNEUMONIAE AG URINE Negative (Negative); STREP.PNEUMO BODY FLUID CULT. Not indicated.
[2020-01-21 13:13] LABS: LEGIONELLA PNEUMO AG URINE Negative (Negative)
[2020-01-21] MEDS ORDERED: SODIUM CHLORIDE 0.9% 500 ML IV ONE ×2 (14:42→22:06)
[2020-01-21 16:00] VITALS: BP 104/30
[2020-01-21] MEDS: GLUCAGON,HUMAN RECOMBINANT 1 MG VIAL IVP PRN ×2 (17:16→18:10)
[2020-01-21] MEDS ORDERED: HEPARIN SODIUM,PORCINE 1,000 UNITS/ML VIAL ONE (17:57)
[2020-01-21 20:00] VITALS: BP 129/39
[2020-01-21] MEDS: CEFEPIME HCL 2 GM in DEXTROSE 5%-WATER 50 ML IV SCH (20:47)
[2020-01-21] MEDS ORDERED: DEXTROSE 50%-WATER 25 GM/50 ML SYRINGE IVP ONE (21:30)
[2020-01-21] MEDS ORDERED: SODIUM CHLORIDE 0.9% 250 ML IV ONE (22:06)
[2020-01-22] VITALS: BP 117/29
[2020-01-22] MEDS: HYDROCORTISONE SOD SUCC 100 MG/2 ML VIAL IVP SCH ×2 (00:22→08:19)
[2020-01-22] MEDS: ALBUMIN HUMAN 25%-25GM/100ML 100 ML IV SCH ×2 (02:21→09:24)
[2020-01-22 04:00] VITALS: BP 125/42
[2020-01-22] MEDS: DOXYCYCLINE HYCLATE 100 MG in DEXTROSE 5%-WATER 100 ML IV SCH (04:08)
[2020-01-22] MEDS: GLUCAGON,HUMAN RECOMBINANT 1 MG VIAL IVP PRN ×3 (04:16→06:24)
[2020-01-22 04:56] LABS: EOSINOPHILS % (AUTO) 0.4 % (1.0-6.0); HEMATOCRIT 24.6 % (41-53); HEMOGLOBIN 7.9 g/dL (13.5-17.5); LYMPHOCYTES # (AUTO) 1.1 K/uL (1.0-4.8); LYMPHOCYTES % (AUTO) 7.4 % (22.0-44.0); MEAN CORPUSCULAR HEMOGLOBIN 27.4 pg (26.0-34.0); MEAN CORPUSCULAR HGB CONC 32.4 G/dL (31.0-37.0); MEAN CORPUSCULAR VOLUME 85 fL (80-100); MONOCYTES # (AUTO) 2.4 K/uL (0.1-1.0); MONOCYTES % (AUTO) 16.6 % (2.0-9.0); NEUTROPHILS % (AUTO) 75.6 % (40.0-70.0); RED CELL DISTRIBUTION WIDTH 17.4 % (11.5-14.5)
[2020-01-22 05:20] LABS: ALBUMIN 2.9 g/dL (3.4-5.0); C-REACTIVE PROTEIN QUANT 2.96 mg/dL (0.00-0.30); CALCIUM, TOTAL 8.8 mg/dL (8.8-10.5); CREATININE 2.21 mg/dL (0.60-1.30); POTASSIUM 3.2 mmol/L (3.5-5.1); TOTAL PROTEIN, SERUM 4.2 g/dL (6.4-8.2)
[2020-01-22 06:08] LABS: PLATELET COUNT (AUTO) 10 K/uL (150-450)
[2020-01-22] MEDS: MetroNIDAZOLE 500 MG/NACL 100 ML IV SCH (06:11)
[2020-01-22 08:00] VITALS: BP 119/40
[2020-01-22] MEDS: FAMOTIDINE 10 MG/ML 2 ML VIAL IVP SCH (08:19)
[2020-01-22] MEDS ORDERED: SODIUM CHLORIDE 154 MEQ in DEXTROSE 10%-WATER 1,000 ML IV SCH (10:00)
[2020-01-22 12:00] VITALS: BP 88/31
[2020-01-22] MEDS ORDERED: MORPHINE SULFATE 100 MG/NS/PF 100 ML IV PRN (14:00)
[2020-01-22] MEDS ORDERED: LORazepam 2 MG/ML VIAL IVP PRN (15:45)
[2020-01-22] MEDS ORDERED: HEPARIN SODIUM,PORCINE 1,000 UNITS/ML VIAL IVP ONE (17:11)
[2020-01-24 16:42] LABS: GLUCOSE,POINT OF CARE 82 MG/DL (70-110)
[2020-01-24 16:42] LABS: GLUCOSE,POINT OF CARE 106 MG/DL (70-110)
[2020-01-24 16:42] LABS: GLUCOSE,POINT OF CARE 142 MG/DL (70-110)
[2020-01-24 16:42] LABS: GLUCOSE,POINT OF CARE 81 MG/DL (70-110)
[2020-01-24 16:42] LABS: GLUCOSE,POINT OF CARE 108 MG/DL (70-110)
[2020-01-24 16:42] LABS: GLUCOSE,POINT OF CARE 88 MG/DL (70-110)
[2020-01-24 16:42] LABS: GLUCOSE,POINT OF CARE 80 MG/DL (70-110)
[2020-01-24 16:42] LABS: GLUCOSE,POINT OF CARE 80 MG/DL (70-110)
[2020-01-24 16:42] LABS: GLUCOSE,POINT OF CARE 88 MG/DL (70-110)
[2020-01-24 16:42] LABS: GLUCOSE,POINT OF CARE 87 MG/DL (70-110)
[2020-01-24 16:42] LABS: GLUCOSE,POINT OF CARE 89 MG/DL (70-110)
[2020-01-24 16:42] LABS: GLUCOSE,POINT OF CARE 101 MG/DL (70-110)
[2020-01-24 16:42] LABS: GLUCOSE,POINT OF CARE 104 MG/DL (70-110)
[2020-01-24 16:42] LABS: GLUCOSE,POINT OF CARE 90 MG/DL (70-110)
[2020-01-24 16:42] LABS: GLUCOSE,POINT OF CARE 87 MG/DL (70-110)
[2020-01-24 16:43] LABS: GLUCOSE,POINT OF CARE 82 MG/DL (70-110)
[2020-01-24 16:43] LABS: GLUCOSE,POINT OF CARE 187 MG/DL (70-110)
[2020-01-24 16:43] LABS: GLUCOSE,POINT OF CARE 85 MG/DL (70-110)
[2020-01-24 16:43] LABS: GLUCOSE,POINT OF CARE 191 MG/DL (70-110)
[2020-01-24 16:43] LABS: GLUCOSE,POINT OF CARE 112 MG/DL (70-110)
[2020-01-24 16:43] LABS: GLUCOSE,POINT OF CARE 52 MG/DL (70-110)
[2020-01-24 16:43] LABS: GLUCOSE,POINT OF CARE 122 MG/DL (70-110)
[2020-01-24 16:43] LABS: GLUCOSE,POINT OF CARE 111 MG/DL (70-110)
[2020-01-24 16:43] LABS: GLUCOSE,POINT OF CARE 81 MG/DL (70-110)
[2020-01-24 16:43] LABS: GLUCOSE,POINT OF CARE 91 MG/DL (70-110)
[2020-01-24 16:43] LABS: GLUCOSE,POINT OF CARE 78 MG/DL (70-110)
[2020-01-24 16:43] LABS: GLUCOSE,POINT OF CARE 77 MG/DL (70-110)
[2020-01-24 16:43] LABS: GLUCOSE,POINT OF CARE 222 MG/DL (70-110)
[2020-01-24 16:43] LABS: GLUCOSE,POINT OF CARE 137 MG/DL (70-110)
[2020-01-24 16:43] LABS: GLUCOSE,POINT OF CARE 108 MG/DL (70-110)
[2020-01-24 16:43] LABS: GLUCOSE,POINT OF CARE 99 MG/DL (70-110)
[2020-01-24 19:20] LABS: GLUCOSE,POINT OF CARE 36 MG/DL (70-110)
[2020-01-24 19:20] LABS: GLUCOSE,POINT OF CARE 53 MG/DL (70-110)
[2020-01-24 19:20] LABS: GLUCOSE,POINT OF CARE 142 MG/DL (70-110)
[2020-01-24 19:20] LABS: GLUCOSE,POINT OF CARE 52 MG/DL (70-110)
[2020-01-24 19:20] LABS: GLUCOSE,POINT OF CARE 97 MG/DL (70-110)
[2020-01-24 19:21] LABS: GLUCOSE,POINT OF CARE 104 MG/DL (70-110)
[2020-01-24 19:21] LABS: GLUCOSE,POINT OF CARE 85 MG/DL (70-110)
[2020-01-24 19:21] LABS: GLUCOSE,POINT OF CARE 134 MG/DL (70-110)
[2020-01-24 19:21] LABS: GLUCOSE,POINT OF CARE 85 MG/DL (70-110)
[2020-01-24 19:21] LABS: GLUCOSE,POINT OF CARE 83 MG/DL (70-110)
[2020-01-24 19:21] LABS: GLUCOSE,POINT OF CARE 110 MG/DL (70-110)
[2020-01-24 19:21] LABS: GLUCOSE,POINT OF CARE 111 MG/DL (70-110)
[2020-01-24 19:21] LABS: GLUCOSE,POINT OF CARE 85 MG/DL (70-110)
[2020-01-24 19:21] LABS: GLUCOSE,POINT OF CARE 89 MG/DL (70-110)
[2020-01-24 19:21] LABS: GLUCOSE,POINT OF CARE 95 MG/DL (70-110)
== END 2020-01-22 18:26 | disposition expired | DRG 720 ==
LOC: EMS 18:01 → UNDOADMIN 20:00 → 5N 20:00 → ICUN 20:09 → EMS 21:30 → ICUN 01-16 07:28 → UNDOADMIN 01-16 07:28 → ICUN 01-16 07:29 → ICU 01-19 08:55
PROVIDERS: ADMIT Hospitalist; ATTEND Hospitalist
PROC: 0BH17EZ Insertion of Endotracheal Airway into Trachea, Via Natural or Artificial Opening (ICD-10-PCS; principal; 2020-01-15)
PROC: 5A1955Z Respiratory Ventilation, Greater than 96 Consecutive Hours (ICD-10-PCS; 2020-01-15)
PROC: 5A12012 Performance of Cardiac Output, Single, Manual (ICD-10-PCS; 2020-01-15)
PROC: 04HY32Z Insertion of Monitoring Device into Lower Artery, Percutaneous Approach (ICD-10-PCS; 2020-01-16)
PROC: 06HY33Z Insertion of Infusion Device into Lower Vein, Percutaneous Approach (ICD-10-PCS; 2020-01-18)
PROC: 5A1D70Z Performance of Urinary Filtration, Intermittent, Less than 6 Hours Per Day (ICD-10-PCS; 2020-01-18)
PROC: 5A1D70Z Performance of Urinary Filtration, Intermittent, Less than 6 Hours Per Day (ICD-10-PCS; 2020-01-19)
PROC: 5A1D70Z Performance of Urinary Filtration, Intermittent, Less than 6 Hours Per Day (ICD-10-PCS; 2020-01-21)
PROC: 5A1D70Z Performance of Urinary Filtration, Intermittent, Less than 6 Hours Per Day (ICD-10-PCS; 2020-01-22)
DX: A41.9 Sepsis, unspecified organism (principal); I48.91 Unspecified atrial fibrillation; I50.9 Heart failure, unspecified; J96.00 Acute respiratory failure, unspecified whether with hypoxia or hypercapnia; J69.0 Pneumonitis due to inhalation of food and vomit; I26.99 Other pulmonary embolism without acute cor pulmonale; N17.0 Acute kidney failure with tubular necrosis; R65.21 Severe sepsis with septic shock; Z66 Do not resuscitate; D64.9 Anemia, unspecified; D69.6 Thrombocytopenia, unspecified; G93.40 Encephalopathy, unspecified; I46.9 Cardiac arrest, cause unspecified; J98.11 Atelectasis; N18.30 Chronic kidney disease, stage 3 unspecified; R18.8 Other ascites; E88.09 Other disorders of plasma-protein metabolism, not elsewhere classified; E87.1 Hypo-osmolality and hyponatremia; J90 Pleural effusion, not elsewhere classified; K72.00 Acute and subacute hepatic failure without coma; K83.09 Other cholangitis; G93.1 Anoxic brain damage, not elsewhere classified; Z20.828 Contact with and (suspected) exposure to other viral communicable diseases; Z59.0 Homelessness; E11.649 Type 2 diabetes mellitus with hypoglycemia without coma; E11.22 Type 2 diabetes mellitus with diabetic chronic kidney disease
CPT/HCPCS: 36600; 70450; 71275; 74181; 76705; 76770; 80074; 80307; 82271; 82570; 82728; 82805; 83036; 83605; 83615; 83735; 84075; 84100; 84145; 84156; 84300; 84439; 84443; 84540; 85014; 85018; 85379; 85384; 85730; 86022; 86140; 86850; 86900; 86901; 87040; 87045; 87070; 87081; 87086; 87205; 87324; 87340; 87426; 87449; 87804; 87899; 90935; 93005; 93306; 93970; 94002; 94003; 94640; 99291; G0238; G0378; G0480; G0481; J0171; J0282; J0456; J0610; J0692; J0696; J0883; J1610; J1644; J1720; J1940; J2060; J2250; J2270; J2370; J2704; J3010; J3411; J3475; J3480; J3490; J7030; J7040; J7042; J7050; J7060; J7100; J7131; P9046; 36415-L1; 36415-TC; 71045-TC; 80061-TC; 80076-TC; U0003